=== PATIENT | male | born 1955 | race Caucasian/White ===

== ENCOUNTER 2018-01-03 19:03 | Emergency (ER) | payer MEDICAID ==
[~2018-01-03] VITALS: Ht 185.4 cm; Wt 69.5 kg
[2018-01-03 19:07] VITALS: BP 129/71
== END 2018-01-03 19:39 ==
LOC: ER 19:04
DX: F10.129 Alcohol abuse with intoxication, unspecified (principal); F15.10 Other stimulant abuse, uncomplicated; F11.10 Opioid abuse, uncomplicated; Z56.0 Unemployment, unspecified; Y90.9 Presence of alcohol in blood, level not specified
CPT/HCPCS: 99283